=== PATIENT | male | born 1955 | race African-American/Black ===

== ENCOUNTER 2020-05-20 08:02 | Emergency (ER) | payer MEDICARE, OTHER ==
[~2020-05-20] VITALS: Ht 188 cm; Wt 113.4 kg
[~2020-05-20 08:02] MED LIST: BENAZEPRIL HCL10 MG ORAL; FAMOTIDINE20 MG ORAL; METFORMIN HCL1000 M1 ORAL; METFORMIN HCL500 M1 ORAL; SIMVASTATIN5 MG ORAL; TEMAZEPAM30 MG ORAL; TRAZODONE HCL150 MG ORAL; VIAGRA100 MG PO
--- NOTE | 2020-05-20 08:06 | Emergency Room Report ---
History of Present Illness General Chief Complaint: To Be Triaged Source: Patient Present Illness HPI 64-year-old male here with anxiety attack Pt states "I just need to get a shot to calm down like I did before ...I havent slept well in the past 5 days" Pt reports trying to wean himself off latuda, trazadone, and temazepam because he is trying to go all natural. He is doing malay kenny and drinking herbal teas which usually help. He c/o waking up with panick attacks every so often because a woman owes him money. Denies CP, SOB, weakness, JOHNSON, neck/back pain, n/v/d, orthopnea, LEVI, swelling, fever, rash or any physical complaints whatsoever. Denies SI HI auditory or visual hallucinations The patient's symptoms were gradual onset, severity was mild, duration since 5 days. Quality: no pain Pt last saw his psychiatrist 6 months ago. States he does not want to be on home psych medications because he is trying a healthy lifestyle with exercise and teas. Past medical history: anxiety, htn, dm Past surgical history: Denies Smoking: Denies Alcohol use: occasional Drug use: marijuana Review of systems: CONST: No fevers or chills, No night sweats PULMONARY: No productive cough, No shortness of breath CARDIAC: No chest pain, No palpitations GI: No vomiting, No diarrhea , No melena_or_BRBPR : No dysuria, No hematuria, No discharge NEURO: No new_focal_weakness_or_numbness, No confusion, No vision changes 14 point Review of Systems is otherwise negative except per HPI Physical Exam: GENERAL: Awake_alert_ nontoxic, no acute distress Spo2 96% on RA -normal EYES: Extraocular muscles are intact. Conjunctivae clear. Lids without swelling ENT: External nose and ear normal_in_appearance. Oropharynx clear. Head_ atraumatic, Moist_oral_mucosa NECK: No JVD. No meningismus. No thyromegaly. Supple. Trachea midline RESP: Normal respiratory effort. Symmetric rise. No stridor. Clear_to_ auscultation_No_rales_No_wheezes CARDIAC: Regular rate and regular rhytm. No_significant pedal edema. ABDOMEN: Soft. Nondistended. Nontender_No_rebound_or_guarding. MSK: Normal muscle tone, without rigidity. Extremities without asymmetric deformity or swelling. SKIN: Warm and dry. No visible cyanosis or pallor NEUROLOGIC: Alert, oriented x3. Motor_and_sensation_grossly_intact. No truncal ataxia. Gait_normal Psych: Normal mood and affect, normal judgment and insight No SI HI auditory or visual hallucinations - COORDINATION OF CARE Case was discussed with: Patient Medical Decision Making/Plan: Differential diagnosis includes anxiety attack, generalized anxiety disorder, stress reaction, among others. Denies CP, SOB, or anginal equivalent. The patient denies any suicide attempt, overdose, or ingestion. They exhibit no signs of any severe toxic syndrome or drug / alcohol withdrawal. No SI HI auditory or visual hallucinations. EKG was done for screening and found to be NSR. No change from previous EKG in Sep 2019. Offered labs, cxr to evaluate his heart, although low suspicion for ACS. Patient declines. ED intervention included ativan 1mg IM with full resolution of symptoms. They have no focal neurologic deficits and were able to ambulate with a steady gait without assistance. The patients presentation seems to be consistent with anxiety, without any evidence of dangerous arrhythmias, thyrotoxicosis, metabolic / endocrinologic emergency, or indication for emergency psychiatric evaluation. The patient appears to be stable for dc home and follow with psychiatry as an outpatient within 1 week Pertinent results reviewed with the patient. I educated the patient on the current treatment plan including the risks, benefits, and alternatives. I also discussed the extent and limitations of the current evaluation. The patient expressed understanding and agreement with plan. I recommended PMD follow-up within 1-2 days. Also advised that the patient return to the Emergency Department as soon as possible if they experience any new, persistent, or worsening symptoms. Allergies: Coded Allergies: No Known Allergies (Unverified , 09/30/19) Nursing Documentation-PMH Hx Hypertension: Yes Hx Diabetes: Yes Physical Exam Sp02 EP Interpretation: reviewed, normal Medical Decision Making Diagnostic Impression: Primary Impression: Anxiety EKG Diagnostic Results CAROLINA Scribe Text 12-lead EKG (interpreted by me) Time: 0834 Indication: Rhythm analysis Tracing visualized and Interpreted by me. 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 Follow-up with your doctor sooner if your condition requires a more timely clinical reevaluation. Return to the emergency department immediately if you feel that your condition is worsening or if you have any new or concerning symptoms. Review your discharge instructions and take any prescriptions given as instructed. Ann Menon D.O. May 20, 2020 08:06
[2020-05-20] MEDS ORDERED: LORazepam Inj 2mg/ml 1ml IM ONE (08:30)
[2020-05-20 08:49] VITALS: BP 137/71
== END 2020-05-20 08:55 | disposition home or self-care (01) ==
LOC: EMR 08:25
DX: F41.9 Anxiety disorder, unspecified (principal); E11.9 Type 2 diabetes mellitus without complications; I10 Essential (primary) hypertension
CPT/HCPCS: 93005; 96372; 99283

== ENCOUNTER → 2020-06-04 | Emergency (ER) | payer MEDICARE, OTHER ==
[~2020-06-04] VITALS: Ht 188 cm; Wt 115.7 kg
[~2020-06-04] MED LIST changes: +LORazepam Inj 2mg/ml 1ml ONE
[2020-06-04 02:58] VITALS: BP 160/98
--- NOTE | 2020-06-04 04:48 | Emergency Room Report ---
History of Present Illness General Chief Complaint: Behavioral Complaint Source: Patient Present Illness HPI This is a 64-year-old male with a history of anxiety and insomnia. He was on benzodiazepine for it but he and his psychiatrist himself off of it. He presents with chief complaint of feeling anxious and cannot sleep. This is an ongoing issue but worse in the last couple days. He denies any fever chills but denies any nausea vomiting. No suicidal thoughts homicidal thought. No chest pain. He just wanted a shot of something to calm him down. No other complaint. Denies any alcohol drugs. Allergies: Coded Allergies: No Known Allergies (Unverified , 09/30/19) COVID-19 Screening Contact w/high risk pt: No Experienced COVID-19 symptoms?: No COVID-19 Testing performed MANAGER OF INTERNATIONAL: No Patient History Past Medical History: see triage record, old chart reviewed, psych hx Past Surgical History: none Pertinent Family History: none Social History: Denies: smoking Immunizations: other Reviewed Nursing Documentation: PMH: Agreed; PSxH: Agreed Nursing Documentation-PMH Hx Hypertension: Yes Hx Diabetes: Yes History Of Psychiatric Problem: Yes - anxiety Review of Systems Eye: Denies: eye pain, blurred vision ENT: Denies: ear pain, nose congestion, throat swelling Respiratory: Denies: cough, shortness of breath Cardiovascular: Denies: chest pain, palpitations Gastrointestinal: Denies: abdominal pain, diarrhea, nausea, vomiting Musculoskeletal: Denies: back pain, joint pain Skin: Denies: rash Neurological: Denies: headache, numbness Endocrine: Denies: increased thirst, increased urine Hematologic/Lymphatic: Denies: easy bruising All Other Systems: negative except mentioned in HPI Physical Exam Vital Signs Date Time Temp Pulse Resp B/P (MAP) Pulse Ox O2 Delivery O2 Flow Rate FiO2 06/04/20 02:58 97.5 65 18 160/98 (118) 94 Room Air Vitals with hypertension Sp02 EP Interpretation: reviewed, normal General Appearance: well appearing, no apparent distress, alert Head: normocephalic, atraumatic Eyes: bilateral eye PERRL, bilateral eye EOMI ENT: hearing grossly normal, normal pharynx Neck: full range of motion, supple, no meningismus Respiratory: chest non-tender, lungs clear, normal breath sounds Cardiovascular #1: regular rate, rhythm, no murmur Gastrointestinal: normal bowel sounds, non tender, no mass, no organomegaly, no bruit, non-distended Musculoskeletal: back normal, normal range of motion, gait/station normal Psychiatric: anxious Medical Decision Making Diagnostic Impression: Primary Impression: Anxiety ER Course Patient presents with anxiety. Better after dose of Ativan IM. No suicidal thoughts homicidal thought. No criteria for 5150. Patient does not want any prescription. Last Vital Signs Date Time Temp Pulse Resp B/P (MAP) Pulse Ox O2 Delivery O2 Flow Rate FiO2 06/04/20 02:58 97.5 65 18 160/98 (118) 94 Room Air Status: improved Disposition: HOME, SELF-CARE Condition: Stable Referrals: [facility]ERR[facility] (PCP) Jere Montes MD Jun 04, 2020 04:48
== END | disposition home or self-care (01) ==
LOC: EMR 04:42
DX: F41.9 Anxiety disorder, unspecified (principal); E11.9 Type 2 diabetes mellitus without complications; I10 Essential (primary) hypertension; G47.00 Insomnia, unspecified
CPT/HCPCS: 96372; 99283

== ENCOUNTER 2020-06-08 00:10 | Emergency (ER) | payer MEDICARE, OTHER ==
[~2020-06-08] VITALS: Ht 188 cm; Wt 115.7 kg
[~2020-06-08 00:10] MED LIST changes: -LORazepam Inj 2mg/ml 1ml ONE
[2020-06-08 00:20] VITALS: BP 154/84
--- NOTE | 2020-06-08 00:20 | NUR ---
ED Nurse Note: Patient walked into ED for c/o unable to sleep and anxiety. Patient states he has not been able to sleep for weeks and it is causing him to become very anxious. He was recently seen here at [facility] for same complaint and was given ativan IM. Patients states the IM ativan helped him sleep really well; he is requesting same treatment plan. Patient is not having homicidal or suicidal thought, denies hallucinations. Denies chest pain and SOB. He is aaox4.
--- NOTE | 2020-06-08 00:41 | Emergency Room Report ---
History of Present Illness General Chief Complaint: Behavioral Complaint Present Illness HPI 64-year-old -[place] male presents with complaint of anxiety and insomnia. States that he is weaning himself off prescription anxiety medications and trying healthy treatment modalities such as exercise and walking, however sometimes has to come to the emergency department to get "a shot to help him sleep". He denies any complaint of chest pain, shortness of breath, nausea, vomiting, diarrhea, fever, chills, headache, back pain or other symptoms. Denies SI, HI, auditory or visual hallucinations. States that this feels similar to his previous anxiety attacks. The patient's symptoms were gradual onset, severity was moderate, duration since 1 day. Quality: Anxious Worse with coffee Past medical history: Anxiety Past surgical history: Denies Smoking: Denies Alcohol use: Denies Drug use: Denies Review of systems: CONST: No fevers or chills, No night sweats PULMONARY: No productive cough, No shortness of breath CARDIAC: No chest pain, No palpitations GI: No vomiting, No diarrhea , No melena_or_BRBPR : No dysuria, No hematuria, No discharge NEURO: No new_focal_weakness_or_numbness, No confusion, No vision changes 14 point Review of Systems is otherwise negative except per HPI Physical Exam: GENERAL: Awake_alert_ nontoxic, no acute distress Spo2 98% on RA -normal EYES: Extraocular muscles are intact. Conjunctivae clear. Lids without swelling ENT: External nose and ear normal_in_appearance. Oropharynx clear. Head_atraumatic, Moist_oral_mucosa NECK: No JVD. No meningismus. No thyromegaly. Supple. Trachea midline RESP: Normal respiratory effort. Symmetric rise. No stridor. Bessy r_to_auscultation_No_rales_No_wheezes CARDIAC: Regular rate and regular rhytm. No_significant pedal edema. ABDOMEN: Soft. Nondistended. Nontender_No_rebound_or_guarding. MSK: Normal muscle tone, without rigidity. Extremities without asymmetric deformity or swelling. SKIN: Warm and dry. No visible cyanosis or pallor NEUROLOGIC: Alert, oriented x3. Motor_and_sensation_grossly_intact. No truncal ataxia. Gait_normal Psych: Normal mood and affect, normal judgment and insight - COORDINATION OF CARE Case was discussed with: Patient Medical Decision Making/Plan: Differential diagnosis includes anxiety attack, generalized anxiety disorder, stress reaction, among others. Patient is afebrile with no focal neurologic deficit. Denies any physical com plaint. The patient denies any suicide attempt, overdose, or ingestion. They exhibit no signs of any severe toxic syndrome or drug / alcohol withdrawal. EKG showed NSR with no acute ischemia. ED intervention included Ativan 1 mg IM with full resolution of symptoms. After serial exams in the emergency department, the patient remains sober and without any suicidal ideation, homicidal ideation or evidence of grave disability They have no focal neurologic deficits and were able to ambulate with a steady gait without assistance. The patients presentation seems to be consistent with anxiety, without any indication for emergency psychiatric evaluation. The patient appears to be stable for dc home and follow with psychiatry as an outpatient. 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 Rhythm: Normal sinus rhythm Rate: 79 bpm QTc: 419 Morphology: No_significant_ST_elevations_or_depressions, No STEMI Impression: Normal_sinus_rhythm_without_significant_abnormality. 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 Follow-up with your doctor sooner if your condition requires a more timely clinical reevaluation. Return to the emergency department immediately if you feel that your condition is worsening or if you have any new or concerning symptoms. Review your discharge instructions and take any prescriptions given as instructed. [facility]: [facility] [address] [place] [address] [place] [address] [facility] [address] [place] [address] [place] [address] [phone] [facility] [address] [place] [address] [facility] [place] [facility] [place] [address] [facility] [address] [place] [address] [place] [address] [facility] [address] [place] [address] [place] [address] [facility] [address] [place] [address] [facility] PROVIDES FREE OR [facility]OW-COST HEALTH SERVICES TO PEOPLE WHO CAN SHOW PROOF THAT THEY LIVE IN [facility]. TO FIND MORE CLINICS PARTNERED WITH THE [facility] TO PROVIDE SERVICE, PLEASE CALL . [facility] facet Ann Menon D.O. Jun 08, 2020 00:41
[2020-06-08] MEDS ORDERED: LORazepam Inj 2mg/ml 1ml IM ONE (00:45)
[2020-06-08 00:48] VITALS: BP 145/80
--- NOTE | 2020-06-08 00:48 | NUR ---
ER DISCHARGE NOTE: Patient is cleared to be discharged per ERMD, pt is aox4, on room air, with stable vital signs. pt was given dc instructions, pt was able to verbalize understanding, pt id band removed. pt is able to ambulate with steady gait. pt took all belongings and accompanied by friend in waiting room.
== END 2020-06-08 00:48 | disposition home or self-care (01) ==
LOC: EMR 00:45
DX: F41.9 Anxiety disorder, unspecified (principal); E11.9 Type 2 diabetes mellitus without complications; I10 Essential (primary) hypertension; G47.00 Insomnia, unspecified
CPT/HCPCS: 93005; 96372; 99283